=== PATIENT | male | born 1960 | race Asian ===

== ENCOUNTER 2017-05-04 20:46 | Emergency (ER) | payer MEDICAID, OTHER ==
--- NOTE | 2017-05-04 22:38 | ED Physician Chart ---
Chief Complaint/HPI - Patient Information Date Seen:: 05/04/17 Time Seen:: 22:28 Chief Complaint:: rt foot pain History of Present Illness:: pt w rt foot pain x 2 days. has hx of gout (dxd in [facility]) and this feels the same as in past. no fever, no cp, no sob. no rash. no leg pain or edema. painful to lt touch. he has motrin and naproxyn from prior dr visits and tried taking both today wo relief (advised not to use both together)..is on no other gout related meds. no trauma hx. Allergies:: Allergies Allergy/AdvReac Type Severity Reaction Status Date / Time No Known Allergies Allergy Verified 05/04/17 21:41 Vitals:: Vital Signs - 8 hr 05/04/17 21:00 Temp 98.5 F HR 80 RR 18 BP 120/72 O2 Sat % 98 Historian:: Patient, Family Member (dtr) Review of Systems - Review of Systems General/Constitutional: No fever, No chills, No weight loss, No weakness, No diaphoresis, No edema, No loss of appetite Skin: No skin lesions, No rash, No bruising Head: No headache, No light-headedness Eyes: No loss of vision, No pain, No diplopia ENT: No earache, No nasal drainage, No sore throat, No tinnitus Neck: No neck pain, No swelling, No thyromegaly, No stiffness, No mass noted Cardio Vascular: No chest pain, No palpitations, No PND, No orthopnea, No edema Pulmonary: No SOB, No cough, No sputum, No wheezing GI: No nausea, No vomiting, No diarrhea, No pain, No melena, No hematochezia, No constipation, No hematemesis G/U: No dysuria, No frequency, No hematuria Musculoskeletal: Bone or joint pain, No back pain, No muscle pain Endocrine: No polyuria, No polydipsia Psychiatric: No prior psych history, No depression, No anxiety, No suicidal ideation Hematopoietic: No bruising, No lymphadenopathy Allergic/Immuno: No urticaria, No angioedema Neurological: No syncope, No focal symptoms, No weakness, No paresthesia, No headache, No seizure, No dizziness, No confusion, No vertigo Past Medical History - Past Medical History Past Medical History: Other (gout hx) Social History: Smoker, Alcohol Medication: Reviewed Family Medical History - Family Member Mother Ethnicity: Non- Physical Exam - Physical Examination General/Constitutional: Awake, Well-developed, well-nourished, Alert, No distress, GCS 15, Non-toxic appearing, Ambulatory Head: Atraumatic Eyes: Lids, conjuctiva normal, PERRL, EOMI Skin: Nl inspection, No rash, No skin lesions, No ecchymosis, Well hydrated, No lymphadenopathy ENMT: External ears, nose nl, Nasal exam nl, Lips, teeth, gums nl Neck: Nontender, Full ROM w/o pain, No JVD, No nuchal rigidity, No bruit, No mass, No stridor Respiratory: Nl effort/Exclusion, Clear to Auscultation, No Wheeze/Rhonchi/Rales Cardio Vascular: RRR, No murmur, gallop, rubs, NL S1 S2 GI: No tenderness/rebounding/guarding, No organomegaly, No hernia, Normal BS's, Nondistended, No mass/bruits, No McBurney tenderness : No CVA tenderness Extremities: Full ROM, normal strength in all extremities, No edema, Normal digits & nails Other Extremities comments:: rt ankle w slt effusion. some dec rom due to discomfort. ankle is not hot nor red. no calf tndrness. no danay sx. Neuro/Psych: Alert/oriented, DTR's symmetric, Normal sensory exam, Normal motor strength, Judgement/insight normal, Mood normal, Normal gait, No focal deficits Misc: normal gait, Normal back, No paraspinal tenderness Labs/Radiology/EKG Results - Radiology Results Results: xray rt ankle no fx//wnl/chronic age related changes ED Septic Shock - . Is Septic Shock (SBP<90, OR Lactate>4 mmol\L) present?: No - <6hrs of presentation: Vital Signs: Vital Signs - 8 hr 05/04/17 21:00 Temp 98.5 F HR 80 RR 18 BP 120/72 O2 Sat % 98 Reassessment (Disposition) - Reassessment Reassessment:: rx allopurinol, norco 5s (no 14) dose colchicine and norco in ed. pt to fu w pmd in 1-2 days. return if high fever and worse pain. Reassessment Condition:: Improved - Diagnosis Diagnosis:: acute gouty arthritis flare up at rt ankle - Aftercare/Follow up Instructions Aftercare/Follow-Up Instructions:: Counseled pt & family regarding lab results/ diagnosis & need follow up - Patient Disposition Discharge/Transfer:: Home Condition at Disposition:: Improved
[2017-05-04] MEDS ORDERED: Hydrocodone/APAP 5mg/325mg Tab ONE (22:46)
[2017-05-04] MEDS: Hydrocodone/APAP 5mg/325mg Tab PO ONE (22:53)
--- NOTE | 2017-05-05 10:32 | Diagnostic Imaging Report ---
Exam: Right foot HISTORY: Pain Findings: Multiple views of the right foot reviewed. The study demonstrates no evidence for acute fracture dislocation. Mild degenerative osteophytic changes are noted. IMPRESSION: 1. Essentially unremarkable examination right foot, mild valgus deformity of the right great toe appreciated.
== END 2017-05-04 23:00 | disposition home or self-care (01) ==
LOC: ER 20:46
DX: M10.9 Gout, unspecified (principal); M79.671 Pain in right foot; F17.200 Nicotine dependence, unspecified, uncomplicated
CPT/HCPCS: 73630-TC-RT; Z7502; Z7610

== ENCOUNTER 2018-07-21 17:30 | Emergency (ER) | payer MEDICAID, OTHER ==
--- NOTE | 2018-07-21 18:23 | ED Physician Chart ---
ED Chief Complaint/HPI - Patient Information Date Seen:: 07/21/18 Time Seen:: 18:00 Chief Complaint:: right knee pain History of Present Illness:: Patient had onset yesterday of right knee pain and swelling. No recent trauma. Patient had a right knee injury 10 years ago and has had episodes of right knee pain in 2014, 2016 and 2017. He has previously had they right knee tapped which resulted in decreased pain. Allergies:: Allergies Allergy/AdvReac Type Severity Reaction Status Date / Time No Known Allergies Allergy Verified 05/04/17 21:41 Vitals:: Vital Signs - 8 hr 07/21/18 17:47 Temp 98.6 F HR 90 RR 16 BP 179/93 O2 Sat % 97 Historian:: Patient Review:: Nurse's Note Reviewed ED Review of Systems - Review of Systems General/Constitutional: No fever, No chills Skin: No skin lesions Head: No headache Eyes: No loss of vision ENT: No earache Neck: No neck pain Cardio Vascular: No chest pain Pulmonary: No SOB GI: No nausea, No vomiting, No diarrhea Musculoskeletal: Bone or joint pain Endocrine: No polyuria Psychiatric: No prior psych history Hematopoietic: No bruising Allergic/Immuno: No urticaria Neurological: No syncope, No focal symptoms ED Past Medical History - Past Medical History Past Medical History: Other (gout) Family History: HTN Social History: Surgical History: Appendectomy Psychiatricy History: None Medication: Reviewed Family Medical History - Family Member Mother Ethnicity: Non- ED Physical Exam - Physical Examination General/Constitutional: Awake, Well-developed, well-nourished, Alert, No distress, GCS 15, Non-toxic appearing, Ambulatory Head: Atraumatic Eyes: Lids, conjuctiva normal, PERRL, EOMI Skin: Nl inspection, No rash, No skin lesions, No ecchymosis, Well hydrated, No lymphadenopathy ENMT: External ears, nose nl, Nasal exam nl, Lips, teeth, gums nl Neck: Nontender, Full ROM w/o pain, No JVD, No nuchal rigidity, No bruit, No mass, No stridor Respiratory: Nl effort/Exclusion, Clear to Auscultation, No Wheeze/Rhonchi/Rales Cardio Vascular: RRR, No murmur, gallop, rubs, NL S1 S2 GI: No tenderness/rebounding/guarding, No organomegaly, No hernia, Normal BS's, Nondistended, No mass/bruits, No McBurney tenderness : No CVA tenderness Other Extremities comments:: Right knee: 2.5 out of 4 swollen and warm; 5-10 of flexion only; collateral and cruciate ligaments are stable Neuro/Psych: Alert/oriented, DTR's symmetric, Normal sensory exam, Normal motor strength, Judgement/insight normal, Mood normal, Normal gait, No focal deficits Misc: Normal back, No paraspinal tenderness ED Labs/Radiology/EKG Results - Lab Results Results: Laboratory Results - last 24 hr 07/21/18 07/21/18 18:10 18:10 Uric Acid 4.9 Fluid Glucose 120.0 Fluid Total Protein < 3.0 ED Assessment - Procedures Procedures:: With about 5 of right knee flexion lateral aspect of right knee was cleansed 4 times with Betadine solution; about 10 mL's of 1% lidocaine was used for local anesthesia at 9:00 lateral aspect of right knee; using a 50 mL syringe with a 18 -gauge needle the right knee joint was aspirated with the needle entering at 9: 00; 40 mL of pink cloudy fluid returned. Folded 4 x 4's with unfolded 4 x 4's over them and then a 6 inch Juan [place] bandage applied for a pressure dressing. Aspiration of the right knee joint provided pain relief for the patient ED Septic Shock - . Is Septic Shock (SBP<90, OR Lactate>4 mmol\L) present?: No - <6hrs of presentation: Vital Signs: Vital Signs - 8 hr 07/21/18 17:47 Temp 98.6 F HR 90 RR 16 BP 179/93 O2 Sat % 97 ED Reassessment (Disposition) - Reassessment Reassessment:: At 2039 patient's right knee pain was improved. We will confirm the patient's telephone number before discharge in case the culture of the synovial fluid comes back positive which is unlikely. Reassessment Condition:: Improved - Diagnosis Diagnosis:: Right knee effusion - Aftercare/Follow up Instructions Aftercare/Follow-Up Instructions:: Refer to Discharge Instructions - Patient Disposition Discharge/Transfer:: Home Condition at Disposition:: Stable, Improved
[2018-07-21 20:09] LABS: BF TOTAL PROTEIN < 3.0 g/dL
[2018-07-21 20:44] LABS: BF APPEARANCE HAZY; BF COLOR RED; BF RBC 18444 /cumm; BF WBC 11667 /cumm; BODY FLUID SOURCE SYNOVIAL
[2018-07-21 22:40] LABS: BF MONOCYTES 8 %
== END 2018-07-21 21:00 | disposition home or self-care (01) ==
LOC: ER 17:30
DX: M25.461 Effusion, right knee (principal); M25.561 Pain in right knee; Z90.49 Acquired absence of other specified parts of digestive tract
CPT/HCPCS: 36415-UA; 82945-TC; 84157-TC; 84550-TC; 87070-90; 87075-90; 87205-90; 89051-TC; 89060-90; Z7502